=== PATIENT | male | born 1940 | race Caucasian/White ===

== ENCOUNTER 2018-07-27 22:02 | Inpatient (IN) | payer MEDICARE, OTHER ==
[~2018-07-27] VITALS: Ht 172.7 cm; Wt 91.2 kg
--- NOTE | 2018-07-27 22:05 | NUR ---
Code Sepsis activated.
[2018-07-27] MEDS ORDERED: IV NORMAL SALINE 1000 ML BAG IV ONE (22:15)
--- NOTE | 2018-07-27 22:15 | NUR ---
SPOKE TO LEANNE THE NURSE MEDICAL HISTORIAN AT [phone], AND ASKED IN REGARDS TO PT'S ADVANCE DIRECTIVE. LEANNE STATED THAT THE PT HAS NO FAMILY ONLY FRIENDS AND THAT DR SAWYER HAS THE PT A FULL CODE STATUS, DR WOO NOTIFIED.
[2018-07-27 22:29] LABS: ABG BASE EXCESS -9.2 mmol/L; ABG HCO3 18.2 mmol/L; ABG PCO2 47.2 mmHg (35.0-45.0); ABG PH 7.204 (7.350-7.450); ABG PO2 71.1 mmHg (75.0-100.0); ABG SITE LEFT RADIAL; ABG TOTAL HEMOGLOBIN 8.1 G/dL (13.5-18.0); COHb 2.4 % (0.5-1.5); MetHb 0.5 % (0.0-1.5); O2Hb 89.1 % (94.0-97.0)
[2018-07-27] MEDS ORDERED: VALS160T29 PO (22:39)
[2018-07-27] MEDS ORDERED: DICL100G16 TP (22:39)
[2018-07-27] MEDS ORDERED: ATOR20TA PO (22:39)
[2018-07-27] MEDS ORDERED: MAGN400O6 PO (22:39)
[2018-07-27] MEDS ORDERED: TRAM50TA2 PO (22:39)
[2018-07-27] MEDS ORDERED: DAPA10TA PO (22:39)
[2018-07-27] MEDS ORDERED: DOCU-141 PO (22:39)
[2018-07-27] MEDS ORDERED: CHOL200059 PO (22:39)
[2018-07-27] MEDS ORDERED: LIDO30AD10 TD (22:39)
[2018-07-27] MEDS ORDERED: ONDA4TAB5 PO (22:39)
[2018-07-27] MEDS ORDERED: PRIM50TA PO (22:39)
[2018-07-27] MEDS ORDERED: POLY15DR57 OP (22:39)
[2018-07-27] MEDS ORDERED: TAMS-3 PO (22:39)
[2018-07-27] MEDS ORDERED: PANT40TA2 PO (22:39)
[2018-07-27] MEDS ORDERED: DICL75TA5 PO (22:39)
[2018-07-27] MEDS ORDERED: FINA5TAB3 PO (22:39)
[2018-07-27] MEDS ORDERED: ACET-2154 PO (22:39)
[2018-07-27] MEDS ORDERED: LACT10SO7 PO (22:39)
--- NOTE | 2018-07-27 22:55 | NUR ---
Xray at bedside.
[2018-07-27] MEDS ORDERED: PIPERACILLIN SODIUM/TAZOBACTAM 3.375 G in IV DEXTROSE 5% 50 ML IV ONE (23:00)
[2018-07-27] MEDS ORDERED: VANCOMYCIN IV 1,000 MG in IV DEXTROSE 5% 250 ML IV ONE (23:00)
--- NOTE | 2018-07-27 23:05 | NUR ---
Pt out of ER for CT. Accompanied patient to CT.
[2018-07-27 23:12] LABS: BASOPHILS % (AUTO) 0.2 % (0.0-2.0); EOSINOPHILS % (AUTO) 0.2 % (0.0-7.0); HEMATOCRIT 24.1 % (36.7-47.1); LYMPHOCYTES # (AUTO) 0.6 K/uL (20.0-40.0); MEAN CORPUSCULAR HEMOGLOBIN 27.6 uug (23.8-33.4); MEAN CORPUSCULAR HGB CONC 30 g/dL (32.5-36.3); MEAN CORPUSCULAR VOLUME 92.7 fL (73.0-96.2); MONOCYTES % (AUTO) 6.8 % (0.0-11.0); NEUTROPHILS # (AUTO) 12.9 K/uL (1.8-8.9); NEUTROPHILS % (AUTO) 88.8 % (38.5-71.5); PLATELET COUNT (AUTO) 231 K/uL (152-348); WHITE BLOOD COUNT (AUTO) 14.5 K/uL (3.6-10.2)
[2018-07-27 23:13] LABS: HEMOGLOBIN 7.2 g/dL (12.5-16.3)
[2018-07-27 23:23] LABS: ALANINE AMINOTRANSFERASE 131 U/L (16-63); ALKALINE PHOSPHATASE 1053 U/L (50-136); ASPARTATE AMINOTRANSFERASE 796 U/L (15-37); BILIRUBIN,DIRECT 1.3 mg/dL (0.0-0.2); BILIRUBIN,TOTAL 1.6 mg/dL (0.2-1.0); CARBON DIOXIDE 19 mmol/L (21-32); CHLORIDE 107 mmol/L (98-107); CREATININE 4.5 mg/dL (0.6-1.3); GLUCOSE 99 mg/dL (74-106); TOTAL PROTEIN, SERUM 6.5 g/dL (6.4-8.2); UREA NITROGEN, BLOOD 74 mg/dL (7-18)
--- NOTE | 2018-07-27 23:25 | NUR ---
Pt back to ER from CT.
[2018-07-27 23:26] LABS: POTASSIUM 6.6 mmol/L (3.5-5.1)
[2018-07-27] MEDS ORDERED: PIPERACILLIN/TAZOBACTAM/D5W 50 ML IV ONE (23:43)
[2018-07-28] VITALS (80 sets, daily range): BP systolic 31–108; BP diastolic 15–70
[2018-07-28] MEDS ORDERED: VANCOMYCIN IV 200 ML ONE (00:09)
[2018-07-28] MEDS ORDERED: NOREPINEPHRINE BITARTRATE 8 MG in IV DEXTROSE 5% 500 ML IV ONE (00:30)
[2018-07-28] MEDS ORDERED: INSULIN REGULAR, HUMAN 300 UNIT/3 ML VIAL IV ONE ×2 (00:30→09:30)
[2018-07-28] MEDS ORDERED: SODIUM POLYSTYRENE SULFONATE 15 G/60 ML LIQUID UDC NG ONE (00:30)
[2018-07-28] MEDS ORDERED: DEXTROSE 50% 50 ML DISP.SYRIN IV ONE ×2 (00:30→09:30)
[2018-07-28] MEDS ORDERED: CALCIUM CHLORIDE 1 GM/10 ML DISP.SYRIN IVP ONE ×2 (00:30→00:58)
[2018-07-28] MEDS ORDERED: SODIUM BICARBONATE 8.4% 50 MEQ/50 ML DISP.SYRIN IV ONE ×3 (00:30→08:15)
--- NOTE | 2018-07-28 00:44 | NUR ---
NGT tube in place, verified by 2 RN.
[2018-07-28] MEDS ORDERED: ROCURONIUM BROMIDE 50 MG/5 ML VIAL IV ONE ×2 (00:45→07:00)
--- NOTE | 2018-07-28 00:52 | NUR ---
Called [facility] to page Dr. Newton.
[2018-07-28] MEDS ORDERED: SODIUM POLYSTYRENE SULF POWDER 15 GM UDC ONE (00:58)
[2018-07-28] MEDS ORDERED: DEXTROSE 50% 50 ML DISP.SYRIN ONE (00:58)
[2018-07-28] MEDS ORDERED: NOREPINEPHRINE BITARTRATE 4 MG/4 ML VIAL IV ONE (00:58)
[2018-07-28] MEDS ORDERED: INSULIN REGULAR, HUMAN 300 UNIT/3 ML VIAL ONE (00:59)
--- NOTE | 2018-07-28 01:05 | NUR ---
Dr. Kent on panel call with Dr. Newton. Patient accepted for admission to CCU, diagnosis: respiratory failure.
--- NOTE | 2018-07-28 01:15 | NUR ---
NGT tube placement verified by x-ray.
[2018-07-28] MEDS ORDERED: NOREPINEPHRINE BITARTRATE 8 MG in IV DEXTROSE 5% 500 ML IV PRN (01:30)
[2018-07-28] MEDS ORDERED: IV NS 1000 ML 1,000 ML IV SCH (01:30)
[2018-07-28] MEDS ORDERED: ACETAMINOPHEN 325 MG TABLET PO PRN (01:30)
[2018-07-28] MEDS ORDERED: ONDANSETRON 4 MG/2 ML VIAL IV PRN (01:30)
--- NOTE | 2018-07-28 01:34 | NUR ---
Report given to nurse Lowe. Patient will transfer to CCU bed 1
--- NOTE | 2018-07-28 01:36 | NUR ---
ER called for intubation of patient. With assistance of Anthony PATEL, patient has been intubated with a 7.5 EtTube, ~23cm lipline. Bilateral chest rise noted and auscultated. Xray and sputum culture to follow. Placed patient on AC 18, vt 550, +5 peep, 60% FiO2 per MD orders. Alarm parameters assessed and are on/audible. Ambubag at bedside.
--- NOTE | 2018-07-28 01:50 | NUR ---
Patient out to CT via transport.
[2018-07-28 01:58] LABS: ABG BASE EXCESS -13.6 mmol/L; ABG HCO3 14.3 mmol/L; ABG PCO2 42.7 mmHg (35.0-45.0); ABG PH 7.144 (7.350-7.450); ABG SITE LEFT RADIAL; ABG TOTAL HEMOGLOBIN 7.8 G/dL (13.5-18.0); COHb 1.9 % (0.5-1.5); MetHb 0.5 % (0.0-1.5); O2Hb 93.4 % (94.0-97.0); VENT MODE VENT - A/C; VT, ABG 550 mL
--- NOTE | 2018-07-28 02:18 | NUR ---
Patient transfer to CCU bed 1.
--- NOTE | 2018-07-28 02:18 | NUR ---
Carrie west in [facility] - 07/28/18 at 0238 by CHEYANNE patient
--- NOTE | 2018-07-28 02:20 | NUR ---
Pt is on continuous mechanical ventilation via 7.5 ETT secured at 23cm lip line. Pt is on Siddiqui vent with ordered settings of A/C-18, VT-550, PEEP+5, FIO2-60% Pt tolerating vent settings well. ETT secured with AnchorFast device. Good skin integrity noted to area of application. No signs or symptoms of respiratory distress noted. Transferred to CT on vent battery and oxygen tank. No incidents or complications. Pt transferred directly to CCU1 post CT scan. No complications, no changes noted. Suctioned small amounts of thick pale yellowish secretions. Vent connected to red emergency outlet. Vent alarm parameters checked, on and audible. Bag/valve/mask at bedside. Will continue to monitor Pt.
--- NOTE | 2018-07-28 02:24 | NUR ---
Patient arrived on the unit via rjoes with RN Berenice and SHAWANDA Islas. Patient was seen by Dr. Newton. MD is aware of lactic acid 7.2 and hypothermia, rectal temp of 92.0. Hypothermia protocols initiated. Bear hugger and hot packs applied to extremities. Rectal thermometer in place with continuous monitoring. Patient arrived with neck collar in place.Applied dressing to sacral wound and wound care consult has been ordered. Right IJ central line and patent. Patient Levophed drip and is being monitored closely. initial BP was 91/4 and HR 69. Patient on mechanical vent: AC, BR 18, TV 550, FiO2 60%, PEEP 5. Patient tolerating vent setting. Pupillary response, pin point and non-reactive. Finger stick glucose - 110.
--- NOTE | 2018-07-28 02:25 | NUR ---
patient admitted with DNR order ([id number]) from [facility]. but according to HANDLE MAKERRoshan , patient has no family and patient unable to verbalize and confirm code status. ER MD decided patient to be full code.
[2018-07-28] MEDS ORDERED: DEXTROSE 50% 50 ML DISP.SYRIN IV PRN (03:00)
[2018-07-28] MEDS: NOREPINEPHRINE BITARTRATE 8 MG in IV DEXTROSE 5% 500 ML IV PRN ×2 (03:35→07:37)
[2018-07-28 04:50] LABS: *BILIRUBIN,URIN 2+ (NEGATIVE); *CLARITY,URINE TURBID (CLEAR); *COLOR,URINE Brown (YELLOW); *KETONES,URINE TRACE (NEGATIVE); *UROBILINOGEN,URINE 0.2 E.U./dl (NORMAL); LEUKOCYTE ESTERASE ,URINE NEGATIVE (NEGATIVE); NITRITE, URINE NEGATIVE (NEGATIVE); UGLUCOSE TRACE (NEGATIVE)
[2018-07-28 04:57] LABS: *BLOOD, URINE TRACE (NEGATIVE)
[2018-07-28 05:03] LABS: BACTERIA,URINE NONE SEEN /HPF (NONE SEEN); RED BLOOD CELL CASTS,URINE 20-50 /LPF (NONE SEEN); SQUAMOUS EPITHELIAL CELL,UR FEW /HPF (NONE SEEN)
[2018-07-28] MEDS ORDERED: PIPERACILLIN/TAZOBACTAM/D5W 50 ML IV SCH (06:00)
--- NOTE | 2018-07-28 06:30 | NUR ---
called communications specialist physician, Lamar Koroma, and informed about patient low blood pressure and is max out on Levophed (35 mcg/min). New orders of dopamine have been given.
[2018-07-28] MEDS: BLOOD SUGAR DIAGNOSTIC 1 EACH STRIP VI SCH ×4 (06:34→23:07)
[2018-07-28] MEDS: INSULIN REGULAR, HUMAN 300 UNIT/3 ML VIAL SQ PRN ×4 (06:37→23:10)
[2018-07-28] MEDS: DOPamine IV DRIP 400 MG/250ML 250 ML IV PRN ×5 (06:53→22:54)
--- NOTE | 2018-07-28 07:30 | NUR ---
report received from Mickey MAYBERRY/ Rosalba MAYBERRY. 78 yr old male admitted to CCU for septic shock on 07/28/18 Addendum: 07/28/18 at 0815 by MAURY HALLMAN RN Amended: Links added.
[2018-07-28 07:42] LABS: IRON, SERUM 21 ug/dL (50-175)
--- NOTE | 2018-07-28 07:57 | NUR ---
PT RECEIVED ON CMV WITH 7.5 ETT SECURED AT 23 CM BY LIP. AIRWAY PATENT. PT APPEARS COMFORTABLE TOLERATING CURRENT VENT SETTINGS FINE WITH NO DISTRESS. VENT ALARMS SET AND AUDIBLE.
[2018-07-28 08:04] LABS: ALANINE AMINOTRANSFERASE 198 U/L (16-63); ALKALINE PHOSPHATASE 1126 U/L (50-136); ASPARTATE AMINOTRANSFERASE 1280 U/L (15-37); BILIRUBIN,TOTAL 1.8 mg/dL (0.2-1.0); CARBON DIOXIDE 15 mmol/L (21-32); CHLORIDE 106 mmol/L (98-107); CREATININE 4.4 mg/dL (0.6-1.3); GLUCOSE 141 mg/dL (74-106); TOTAL PROTEIN, SERUM 7.1 g/dL (6.4-8.2); UREA NITROGEN, BLOOD 73 mg/dL (7-18)
[2018-07-28] MEDS ORDERED: SODIUM BICARBONATE 8.4% 100 MEQ in IV D5W 1000ML 1,000 ML IV PRN (08:15)
[2018-07-28 08:26] LABS: POTASSIUM 6.6 mmol/L (3.5-5.1)
--- NOTE | 2018-07-28 08:30 | NUR ---
Seen by Dr Frank, Pulmonary. [facility] reviewed and orders received. 2 amps sodium bicarbonate given IV push. and IV fluid D5w aliter with 2 amps sodium bicarbonate started at 125 ml/hr via right IJ tlc. patient also has a portacath left upper chest.taylor catheter intact no uo from 8am. critical labsk 6.6 lactic acid 6.8 albumin 1.4 Addendum: 07/28/18 at 0916 by MAURY HALLMAN RN Amended: Links added.
[2018-07-28] MEDS ORDERED: SODIUM BICARBONATE 8.4% 100 MEQ in IV D5W 1000ML 1,000 ML IV ONE (08:45)
[2018-07-28] MEDS ORDERED: PANTOPRAZOLE SODIUM 40 MG VIAL IV SCH (09:00)
[2018-07-28] MEDS: Z GUARD REMEDY PASTE 57 GM TUBE TOP SCH ×2 (09:00→20:23)
[2018-07-28] MEDS ORDERED: IV NS 1000 ML 1,000 ML IV PRN (09:30)
[2018-07-28] MEDS ORDERED: ALBUTEROL SULFATE 2.5 MG/ 0.5 ML NEBU NEB ONE (09:30)
[2018-07-28] MEDS ORDERED: CALCIUM GLUCONATE IV 1 GM in IV DEXTROSE 5% 50 ML IV ONE (09:30)
--- NOTE | 2018-07-28 09:35 | NUR ---
call to dr Lucas mchugh critical labs. orders received Addendum: 07/28/18 at 0935 by MAURY HALLMAN RN Amended: Links added.
[2018-07-28] MEDS ORDERED: ALBUTEROL SULFATE 2.5 MG/3 ML NEBU NEB ONE ×2 (10:00→11:15)
[2018-07-28 10:08] LABS: ABG BASE EXCESS -10.2 mmol/L; ABG HCO3 17.3 mmol/L; ABG PCO2 46.3 mmHg (35.0-45.0); ABG PH 7.191 (7.350-7.450); ABG PO2 84.7 mmHg (75.0-100.0); ABG SITE RIGHT RADIAL; COHb 1.5 % (0.5-1.5); MetHb 0.5 % (0.0-1.5); O2Hb 92.8 % (94.0-97.0); VENT MODE VENT - A/C; VT, ABG 550 mL
[2018-07-28 10:13] LABS: BASOPHILS % (AUTO) 0.2 % (0.0-2.0); EOSINOPHILS % (AUTO) 0.1 % (0.0-7.0); LYMPHOCYTES # (AUTO) 0.4 K/uL (20.0-40.0); LYMPHOCYTES % (AUTO) 2.1 % (20.5-51.5); MEAN CORPUSCULAR HEMOGLOBIN 27.5 uug (23.8-33.4); MEAN CORPUSCULAR HGB CONC 29 g/dL (32.5-36.3); MONOCYTES # (AUTO) 0.9 K/uL (2.0-10.0); MONOCYTES % (AUTO) 4.8 % (0.0-11.0); NEUTROPHILS # (AUTO) 18.4 K/uL (1.8-8.9); NEUTROPHILS % (AUTO) 92.8 % (38.5-71.5); PLATELET COUNT (AUTO) 259 K/uL (152-348); RED BLOOD CELL COUNT(AUTO) 2.65 MIL/uL (4.06-5.63)
[2018-07-28] MEDS ORDERED: DEXTROSE 10 % IN WATER 250 ML IV ONE (10:15)
[2018-07-28 10:27] LABS: WHITE BLOOD COUNT (AUTO) 19.8 K/uL (3.6-10.2)
[2018-07-28 10:30] LABS: HEMATOCRIT 24.9 % (36.7-47.1)
[2018-07-28] MEDS ORDERED: NOREPINEPHRINE BITARTRATE 16 MG in IV DEXTROSE 5% 500 ML IV PRN (10:30)
[2018-07-28 10:31] LABS: HEMOGLOBIN 7.3 g/dL (12.5-16.3)
[2018-07-28] MEDS: NOREPINEPHRINE BITARTRATE 16 MG in IV DEXTROSE 5% 500 ML IV PRN ×2 (11:11→20:32)
[2018-07-28] MEDS ORDERED: VASOPRESSIN 50 UNIT in IV DEXTROSE 5% 500 ML IV PRN (11:45)
[2018-07-28 12:03] LABS: BAND % (MANUAL) 24 % (0-10); LYMPHOCYTES % (MANUAL) 2 % (20-40); METAMYELOCYTES % 19 % (0-1); MONOCYTES % (MANUAL) 7 % (2-10); MYELOCYTES % 5 % (0-0); NEUTROPHILS % (MANUAL) 43 % (42-75)
[2018-07-28] MEDS: PIPERACILLIN/TAZOBACTAM/D5W 3.375 G in PREMIXED 1 EACH IV SCH ×2 (12:21→23:14)
[2018-07-28] MEDS: PHENYLEPHRINE IV 80 MG in IV DEXTROSE 5% 250 ML IV PRN ×2 (12:22→20:11)
--- NOTE | 2018-07-28 13:09 | NUR ---
CLINICAL PHARMACY NOTE:VANCOMYCIN S: To start vancomycin dosing on 78y/o male patient for empiric tx (per MD note-septic shock, Pneumonia, HCAP vs. aspiration) O: temp 93.3 BUN 73 Scr 4.4 (ARF) WBC 19.8 Vanco random level: pending (ordered for today at 1800) ht 167.6 cm wt 77 kg Plan Patient received vanco 1gm IVPB x1 today at 0030 in ED. Due to elevated srcr, will continue to dose by random level. Next random ordered for today at 1800. Will check level and re-dose as needed. Will follow Addendum: 07/28/18 at 2115 by RAMA HEATH RANDOM LEVEL 10 ORDERED ANOTHER 1GM OF VANCOMYCIN
[2018-07-28] MEDS ORDERED: IV NORMAL SALINE 250 ML IV PRN (16:45)
[2018-07-28] MEDS: SODIUM ACETATE IV PRN (17:16)
[2018-07-28] MEDS: D5W IV PRN (17:16)
--- NOTE | 2018-07-28 18:00 | NUR ---
vee 220 , covered with 4 units humulin R SQ Addendum: 07/28/18 at 1837 by MAURY HALLMAN RN Amended: Links added.
--- NOTE | 2018-07-28 19:02 | NUR ---
Received pt orally intubated with 7.5 ETT~22cm at lip line, on Siddiqui ventilator with the following settings of AC-18, Vt-550, PEEP+5, FIO2-60%. No respiratory distress noted. Airway care done, pt did not responded to physical stimuli. ETT moved to the right. BP low, difficult to get saturation number, pulse ox probe changed, still no changes. Resus. bag at bedside. Vent and alarms checked and reset.
--- NOTE | 2018-07-28 19:40 | NUR ---
Received pt supine, semi-comatose, unable to follow commands. Pupils non-reactive, gag and cough reflex absent. Pt orally intubated, on continuous mechanical ventilation: AC 18, TV 550, PEEP 5, FIO2 60%. O2 sats up to 100%. PICC on right IJ intact and patent. Pt on LEVOPHED drip running at 40 mcg/min, NEOSYNEPHRINE drip at 300 mcg/min, and DOPAMINE 20 mcg/min. Maintenance IVF Sodium Acetate in D5W running at 125 mL/hr. Antibiotic therapy noted. F/C in place. Assessment completed. Closely monitoring temperature trends, Krystle chan observed. Aspiration precautions and safety measures initiated.
--- NOTE | 2018-07-28 21:10 | NUR ---
Isai (friend) at bedside.
[2018-07-28] MEDS ORDERED: VANCOMYCIN IV 1 G in PREMIXED 0 EACH IV ONE (22:00)
--- NOTE | 2018-07-28 22:21 | NUR ---
Called to MD MICHAEL regarding pt's low BP readings SBP ranging from 50s - 70s with max on LEVOPHED, NEOSYNEPHRINE, DOPAMINE and PITRESSIN. MD notified and made aware. No new orders. Continue to monitor closely.
[2018-07-29] VITALS (7 sets, daily range): BP systolic 0–66; BP diastolic 0–45
[2018-07-29] MEDS: NOREPINEPHRINE BITARTRATE 16 MG in IV DEXTROSE 5% 500 ML IV PRN ×2
[2018-07-29] MEDS: PHENYLEPHRINE IV 80 MG in IV DEXTROSE 5% 250 ML IV PRN (00:39)
[2018-07-29] MEDS ORDERED: IV NS 1000 ML 1,000 ML IV SCH (00:45)
--- NOTE | 2018-07-29 00:50 | NUR ---
Call made to DR ARANGO regarding pt's low BP. MD made aware of SBP readings ranging from 30s-50s. Full report and history of pt given. Informed MD about ABG results, maintenance IVF of SODIUM ACETATE in D5W at 125 mL/hr, and max on LEVOPHED, NEOSYNEPHRINE, DOPAMINE and PITRESSIN. New order of NS at 100 mL/hr, but to discontinue if BP is not improving. Continue to carry out plan of care.
--- NOTE | 2018-07-29 01:10 | NUR ---
Increased FIO2 to 100%, due to O2 saturation goes from 60-s to 80-s. SHAWANDA Ma notified. At this time BP was not regestered.
--- NOTE | 2018-07-29 01:15 | NUR ---
NURSING GLASS DEPOSITION TENDER, SHONDA, ROUNDING ON THE UNIT AND IS AWARE OF ABOUT PATIENT STATUS AND CONDITION. MAXED ON 4 PRESSORS AND BP REMAINS LOW. [facility] PHYSICIAN HAVE BEEN CONTACTED AND NOTIFIED - DR. CLARY KHANNA AND .
--- NOTE | 2018-07-29 01:41 | NUR ---
SPOKE TO PATIENTS BROTHER, STEFANY, ABOUT PATIENTS CONDITION AND CONFIRMATION OF CODE STATUS. PATIENT BROTHER STATED THAT "HE WANTS TO GIVE HIM A CHANCE AND FOR US TO DO ALL MEANS NECESSARY TO MAKE HIM COMFORTABLE, HE BELIEVES THAT THAT SOME PEOPLE CAN GET OUT OF THIS CONDITION." INFORM THAT THE PATIENT IS MAXED OUT ON 4 BLOOD PRESSURE MEDICATIONS AND THE PATIENTS CURRENT CONDITION.
[2018-07-29] MEDS: SODIUM ACETATE IV PRN (01:54)
[2018-07-29] MEDS: D5W IV PRN (01:54)
--- NOTE | 2018-07-29 01:54 | NUR ---
Pt became bradycardic and converted to asystole. Called [facility].
[2018-07-29] MEDS: DOPamine IV DRIP 400 MG/250ML 250 ML IV PRN (01:55)
--- NOTE | 2018-07-29 01:55 | NUR ---
[facility] called.
[2018-07-29] MEDS ORDERED: DRIP ONE (01:56)
[2018-07-29] MEDS ORDERED: DOPAMINE ONE (01:56)
--- NOTE | 2018-07-29 02:06 | NUR ---
Pt was pronounced by Dr Devi.
--- NOTE | 2018-07-29 02:15 | NUR ---
Soil Scientist contacted and informed pt's brother of pt . Pt brother stated no coronors case, no autospy, no arrangements done due to jewish affiliation. Pts brother stated he will be coming tomorrow. Nursing supervisor electronics assembly gave nursing office number for pt family member to call.
--- NOTE | 2018-07-29 02:17 | NUR ---
[facility] on-call DR ARANGO made aware pt . As per continuing education dean MD, notify record of to primary physician (MD MICHAEL) in the morning.
--- NOTE | 2018-07-29 02:45 | NUR ---
Call to [facility] regarding pt expiration. As stated by KAITLYN, pt not eligible for organ donation. CASE #: [id number].
--- NOTE | 2018-07-29 03:05 | NUR ---
Post mortem care provided. Followed post mortem protocol. Upper and lower dentures placed inside body bag. No other belongings noted.
[2018-07-29] MEDS ORDERED: EPINEPHRINE 1:10,000 1 MG/10 ML DISP.SYRIN IV ONE (04:39)
[2018-07-29] MEDS ORDERED: ATROPINE SULFATE 1 MG/10 ML DISP.SYRIN IV ONE (04:39)
[2018-07-29] MEDS ORDERED: SODIUM BICARBONATE 8.4% 50 MEQ/50 ML DISP.SYRIN IV ONE (04:39)
[2018-07-29] MEDS ORDERED: FAMOTIDINE. 20 MG/2 ML VIAL IV SCH (09:00)
[2018-07-29] MEDS ORDERED: PANTOPRAZOLE SODIUM 40 MG VIAL IV SCH (09:00)
== END 2018-07-29 04:40 | disposition expired | DRG 871 ==
LOC: ER 22:03 → CCU 07-28 01:05
PROVIDERS: ADMIT Student in an Organized Health Care Education/Training Program; ATTEND Student in an Organized Health Care Education/Training Program
PROC: 5A1945Z Respiratory Ventilation, 24-96 Consecutive Hours (ICD-10-PCS; principal; 2018-07-28)
PROC: 0BH17EZ Insertion of Endotracheal Airway into Trachea, Via Natural or Artificial Opening (ICD-10-PCS; 2018-07-28)
PROC: 05HM33Z Insertion of Infusion Device into Right Internal Jugular Vein, Percutaneous Approach (ICD-10-PCS; 2018-07-28)
PROC: 0DH673Z Insertion of Infusion Device into Stomach, Via Natural or Artificial Opening (ICD-10-PCS; 2018-07-28)
PROC: 5A12012 Performance of Cardiac Output, Single, Manual (ICD-10-PCS; 2018-07-29)
DX: A41.9 Sepsis, unspecified organism (principal); J18.9 Pneumonia, unspecified organism; R65.21 Severe sepsis with septic shock; J96.00 Acute respiratory failure, unspecified whether with hypoxia or hypercapnia; J96.02 Acute respiratory failure with hypercapnia; E43 Unspecified severe protein-calorie malnutrition; G93.41 Metabolic encephalopathy; J86.9 Pyothorax without fistula; J69.0 Pneumonitis due to inhalation of food and vomit; C18.9 Malignant neoplasm of colon, unspecified; C77.9 Secondary and unspecified malignant neoplasm of lymph node, unspecified; C78.2 Secondary malignant neoplasm of pleura; C78.7 Secondary malignant neoplasm of liver and intrahepatic bile duct; M84.48XA Pathological fracture, other site, initial encounter for fracture; E87.2 Acidosis; J91.0 Malignant pleural effusion; N17.9 Acute kidney failure, unspecified; Z66 Do not resuscitate; E87.5 Hyperkalemia; I25.10 Atherosclerotic heart disease of native coronary artery without angina pectoris; Z95.1 Presence of aortocoronary bypass graft; E11.22 Type 2 diabetes mellitus with diabetic chronic kidney disease; N18.9 Chronic kidney disease, unspecified; M19.90 Unspecified osteoarthritis, unspecified site; I13.10 Hypertensive heart and chronic kidney disease without heart failure, with stage 1 through stage 4 chronic kidney disease, or unspecified chronic kidney disease; Z68.30 Body mass index [BMI] 30.0-30.9, adult; D64.9 Anemia, unspecified; I70.0 Atherosclerosis of aorta; R68.0 Hypothermia, not associated with low environmental temperature; Z79.899 Other long term (current) drug therapy
CPT/HCPCS: 36415; 36556; 36600; 70030-TC; 70450; 71045; 71250; 72125; 83550; 83605; 85025; 85730; 86850; 86900; 86901; 87040; 87070; 87077; 87086; 93005; 93307; 94002; 94003; 94640; 94664; A4663; C1751; C9113; G0378; J0171; J0461; J0610; J1265; J1815; J2370; J2543; J3370; J3490; J7030; J7042; J7050; J7060; J7070